=== PATIENT | female | born 1975 | race Hispanic/Latino ===

== ENCOUNTER 2022-12-06 17:04 | Emergency (ER) | payer BC ==
[~2022-12-06] VITALS: Ht 152.4 cm; Wt 74.8 kg
[2022-12-06 17:19] VITALS: BP 147/94
[2022-12-06 17:45] LABS: BASOPHILS % (AUTO) 0.5 % (0.0-5.0); EOSINOPHILS % (AUTO) 0.3 % (0.0-8.0); HEMATOCRIT 41.1 % (36-48); LYMPHOCYTES % (AUTO) 17.4 % (21.0-51.0); MEAN CORPUSCULAR HGB CONC 34.1 g/dL (32.0-36.0); MONOCYTES % (AUTO) 9.8 % (3.0-13.0); NEUTROPHILS % (AUTO) 71.2 % (40.0-77.0); PLATELET COUNT (AUTO) 328 K/uL (130-400); RED BLOOD CELL COUNT(AUTO) 4.67 MIL/uL (4.00-5.50); RED CELL DISTRIBUTION WIDTH 13.1 % (11.0-15.5); WHITE BLOOD COUNT (AUTO) 10.7 K/uL (4.8-10.8)
[2022-12-06 17:54] LABS: CREATININE 0.8 mg/dL (0.5-1.5); POTASSIUM 3.5 mmol/L (3.5-5.1)
[2022-12-06 17:59] LABS: ALBUMIN 3.7 g/dL (3.5-5.0); TOTAL PROTEIN, SERUM 7.5 g/dL (6.0-8.3)
[2022-12-06] MEDS: MECLIZINE HCL 25 MG TABLET PO ONE (20:37)
[2022-12-06 21:42] LABS: APPEARANCE,URINE CLEAR (CLEAR); BILIRUBIN,URINE NEGATIVE (NEGATIVE); COLOR,URINE LIGHT-YELLOW (YELLOW); GLUCOSE, URINE (UA) NEGATIVE (NEGATIVE); KETONES,URINE 5 mg/dL (NEGATIVE); LEUKOCYTE ESTERASE ,URINE NEGATIVE Leu/uL (NEGATIVE); NITRATE,URINE NEGATIVE (NEGATIVE); OCCULT BLOOD,URINE NEGATIVE (NEGATIVE); PH,URINE 6.5 (5.0-8.0); PROTEIN,URINE NEGATIVE (NEGATIVE); UROBILINOGEN,URINE 0.2 mg/dL (0.2-1.0)
[2022-12-06 21:43] LABS: HCG,QUALITATIVE URINE NEGATIVE (NEGATIVE)
[2022-12-06] MEDS ORDERED: MECL-226 PO (22:01)
== END 2022-12-06 22:11 | disposition home or self-care (01) ==
LOC: EDH 17:04
DX: R42 Dizziness and giddiness (principal); R11.0 Nausea
CPT/HCPCS: 36415; 80053; 81003; 81025; 85025; 93005

== ENCOUNTER 2023-02-23 21:10 | Emergency (ER) | payer BC ==
[~2023-02-23] VITALS: Ht 152.4 cm; Wt 74.8 kg
[~2023-02-23 21:10] MED LIST: MECL-226 PO
[2023-02-24] MEDS ORDERED: ONDANSETRON ODT 4MG TAB ONE (00:21)
[2023-02-24] MEDS ORDERED: ONDANSETRON ODT 4MG TAB SL ONE (00:30)
[2023-02-24] MEDS ORDERED: MECLIZINE HCL 25 MG TABLET PO ONE (00:30)
[2023-02-24 00:35] VITALS: BP 125/89
[2023-02-24] MEDS ORDERED: MECL-160 PO (01:29)
== END 2023-02-24 01:41 | disposition home or self-care (01) ==
LOC: EDH 21:10
DX: R42 Dizziness and giddiness (principal); R11.2 Nausea with vomiting, unspecified